=== PATIENT | female | born 2000 | race Caucasian/White ===

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

== ENCOUNTER → 2020-02-13 | Outpatient (CLI) | payer OTHER ==
[~2020-02-13] MED LIST: BIRTH CONTROL
== END | disposition home or self-care (01) ==
LOC: COVID19 05:35
DX: Z01.812 Encounter for preprocedural laboratory examination (principal); Z20.828 Contact with and (suspected) exposure to other viral communicable diseases

== ENCOUNTER → 2020-02-18 | Day surgery (SDC) | payer OTHER ==
[~2020-02-18] VITALS: Ht 160 cm; Wt 108.9 kg
[2020-02-18 06:56] VITALS: BP 125/89
[2020-02-18 07:42] VITALS: BP 97/55
[2020-02-18 07:57] VITALS: BP 111/68
--- NOTE | 2020-02-18 08:04 | NUR ---
IV CATHETER REMOVED IN TACT. SITE ASYMPTOMATIC
[2020-02-18 08:13] VITALS: BP 101/53
== END | disposition home or self-care (01) ==
LOC: SDC 02-14 09:30
PROVIDERS: ATTEND Surgery
DX: K31.84 Gastroparesis (principal); K82.8 Other specified diseases of gallbladder; K29.50 Unspecified chronic gastritis without bleeding; E66.9 Obesity, unspecified; Z68.42 Body mass index [BMI] 45.0-49.9, adult; Z79.899 Other long term (current) drug therapy

== ENCOUNTER → 2020-03-06 | Outpatient (CLI) | payer OTHER | END | disposition home or self-care (01) | LOC: NM 06:26 | PROVIDERS: ATTEND Surgery | DX: R11.14 Bilious vomiting (principal) ==

== ENCOUNTER → 2020-04-07 | Outpatient (CLI) | payer OTHER ==
[~2020-04-07] MED LIST changes: +COLACE100 MG PO; +NORCO 5-325 TA1 EACH PO; +ZOFRAN4 MG PO
== END | disposition home or self-care (01) ==
LOC: COVID19 06:37
PROVIDERS: ATTEND Surgery
DX: Z01.812 Encounter for preprocedural laboratory examination (principal); Z20.828 Contact with and (suspected) exposure to other viral communicable diseases

== ENCOUNTER → 2020-04-10 | Day surgery (SDC) | payer OTHER ==
[~2020-04-10] VITALS: Ht 162.5 cm; Wt 108.9 kg
[2020-04-10 09:00] VITALS: BP 133/89
[2020-04-10 11:45] VITALS: BP 131/80
[2020-04-10 11:56] VITALS: BP 131/75
[2020-04-10 12:15] VITALS: BP 124/81
[2020-04-10 12:30] VITALS: BP 127/75
[2020-04-10 12:45] VITALS: BP 129/81
== END | disposition home or self-care (01) ==
LOC: SDC 04-07 12:30
PROVIDERS: ATTEND Surgery
DX: K81.1 Chronic cholecystitis (principal); K82.8 Other specified diseases of gallbladder; Z79.899 Other long term (current) drug therapy